=== PATIENT | female | born 1990 | race Caucasian/White ===

== ENCOUNTER 2016-03-24 10:37 | Emergency (ER) | payer OTHER ==
[2016-03-24 10:46] VITALS: BP 132/56; PULSE 84; RESP 18; TEMP 98; O2SAT 97
--- NOTE | 2016-03-24 11:41 | UCPHY ---
H & P Time Seen by Provider: 03/24/16 11:11 Patient Type: Established HPI/ROS: After receiving Vicodin postop for laparoscopic repair of ectopic last week. This patient developed a rash. She had taken Vicodin once before without symptoms but within a day of starting the Vicodin last Sunday she developed an itchy rash covering her abdomen. She has tried Benadryl cream as well as Benadryl p.o. with mild improvement from oral Benadryl in terms of itching but no significant change in the rash. She did see her surgeon in follow -up prescribe steroid cream but the symptoms have worsened and she requests more aggressive treatment. ROS: She denies any shortness of breath or wheezing. No other pulmonary symptoms. She reports no nausea vomiting or other GI complaints. She has no significant abdominal pain at this point. 5 point ROS is otherwise negative. Smoking Status: Never smoked Physical Exam: Physical Exam Vital signs are normal. General: No acute distress HEENT: Oropharynx: No angioedema. No intraoral lesions Eyes: Pupils equal and react to light. Extraocular motions are intact. Lungs: Clear to auscultation with no wheeze. No respiratory distress. Cardiac: Brisk capillary refill is intact throughout. Abdomen: Soft and nontender Skin: Patient has a fine erythematous papular rash covering her abdomen the blanches easily with pressure. No petechia or purpura. The surgical wounds are clean dry intact with no significant rash at the surgical sites. There is no fluctuance. Neuro: Alert with normal mental status Initial differential diagnosis: Drug rash, contact dermatitis Constitutional: Initial Vital Signs Temperature (C) 36.6 C 03/24/16 10:43 Heart Rate 84 03/24/16 10:43 Respiratory Rate 18 03/24/16 10:43 Blood Pressure 132/56 H 03/24/16 10:43 O2 Sat (%) 97 03/24/16 10:43 O2 Delivery Mode Room Air Allergies/Adverse Reactions: hydrocodone Allergy (Verified 03/24/16 11:42) Home Medications: Medication Instructions Recorded predniSONE 60 mg PO DAILY #19 tab 03/24/16 MDM/Departure - [facility] ED Course/Re-evaluation: Patient appears clinically well without any constitutional symptoms concerning for Scooby Barney's or anaphylaxis. Rather she has isolated urticarial findings on her abdominal wall. I think this is due to a Vicodin allergy - Depart Disposition: Home, Routine, Self-Care Clinical Impression: Drug-induced skin rash Condition: Good Instructions: Acute Rash (ED) Additional Instructions: Diagnosis: Allergic drug rash. Plan: List hydrocodone as an allergy from now on Prednisone 60 mg a day as prescribed Continue Benadryl for itching as needed Return for any significant worsening despite the treatment plan Prescriptions: predniSONE 60 mg PO DAILY #19 tab Referrals: NONE *PRIMARY CARE P,. [Primary Care Provider] - As per Instructions - PQRS PQRS Measurement: NA
== END 2016-03-24 11:44 | disposition home or self-care (01) ==
LOC: CED 10:37
DX: L27.0 Generalized skin eruption due to drugs and medicaments taken internally (principal)
CPT/HCPCS: 99214-PO; G0463-PO